=== PATIENT | female | born 1965 | race Caucasian/White ===

== ENCOUNTER → 2016-08-25 11:24 | Outpatient (CLI) | payer BC | END | disposition home or self-care (01) | LOC: D.MAMMO 11:24 | DX: Z12.31 Encounter for screening mammogram for malignant neoplasm of breast (principal) ==

== ENCOUNTER → 2017-11-10 08:00 | Outpatient (CLI) | payer BC | END | disposition home or self-care (01) | LOC: D.MAMMO 08:00 | DX: Z12.31 Encounter for screening mammogram for malignant neoplasm of breast (principal) ==

== ENCOUNTER → 2019-01-07 12:41 | Outpatient (CLI) | payer BC ==
--- NOTE | 2019-01-09 15:08 | EC ---
PATIENT:ISSAC JON DATE OF SERVICE: 01/07/19 SEX: F MEDICAL RECORD: [id number] DATE OF : 69 LOCATION:D[facility] AGE OF PATIENT: 53 ADMISSION DATE: 01/07/19 REFERRING PHYSICIAN: INTERPRETING PHYSICIAN: DWAYNE RICHARDSON MD ECHOCARDIOGRAM REPORT ECHO CHARGES 4 ECHO COMPLETE Date: 01/07/19 CLINICAL DIAGNOSIS: HTN/MURMUR/ATYPICAL CP ECHOCARDIOGRAPHIC MEASUREMENTS (adult normal given) AC root (d.<3.7cm) 2.6 cm LV Septum d (<1.2 cm> 0.9 cm Valve Excursion 1.8 cm LV Septum (systole) 1.5 cm Left Atria (s.<4.0cm> 3.8 cm LVPW d(<1.2cm) 1.0 cm RV (d.<2.3cm) 2.9 cm LVPW (sytole) 1.7 cm LV diastole(<5.6CM) 4.9 cm MV E-F(>70mm/sec) cm LV systole 2.4 cm LVOT Diameter 1.8 cm MV exc.(>10mm) cm Est.ejection fraction (50-75%) % DOPPLER: LVIT cm/sec A 67.0 cm/sec E 86.0 cm/sec LA cm/sec RVSP 24.0 mmHg LVOT 116 cm/sec AOP1/2T m/s Asc. Ao 144 cm/sec RVOT 51.0 cm/sec RA cm/sec PA 71.0 cm/sec AV Gradient Peak 8.3 mmHg AV Mean 4.8 mmHg AV Area 1.8 cm MV Gradient Peak 5.0 mmHg MV Mean 1.8 mmHg MV Area cm COMMENTS: OP - HC Sterilisation Technician: 1 DESTIN KENNY [facility] Dining Room Cashier: 3 Dr. Gray TAPE# PACS Pericardial Effusion N DATE OF SERVICE: Adequate 2D, color flow imaging, spectral Doppler, and M-Mode No LVH. LV internal dimensions are normal. Wall motion is normal. EF is greater than or equal to 55%. Aortic valve is tricuspid. No evidence of stenosis by Doppler interrogation.. Left atrium is normal at 3.8 cm. Mitral valve shows no prolapse. Trace MR. Right-sided chambers are grossly normal. Trace TR. ECHOCARDIOGRAM REPORT [id number] ISSAC JON TRANSINT:[id number] Voice Confirmation ID: [id number] DOCUMENT ID: [id number] DWAYNE RICHARDSON MD at 1508 CC: [id number] DICTATION DATE: 01/08/19 1331 DIE ATTACHING MACHINE TENDER: 01/08/19 1356 DEP CLI 01/07/19 [place] [id number] [place] [id number]
== END | disposition home or self-care (01) ==
LOC: D.HCCECHO 12:41
PROVIDERS: ATTEND Internal Medicine Interventional Cardiology
DX: R01.1 Cardiac murmur, unspecified (principal)

== ENCOUNTER 2019-06-04 08:00 | Outpatient (CLI) | payer BC | END 2019-06-04 23:59 | disposition home or self-care (01) | LOC: D.MAMMO 08:00 | PROVIDERS: ATTEND Clinical Nurse Specialist Adult Health | DX: Z12.31 Encounter for screening mammogram for malignant neoplasm of breast (principal) ==

== ENCOUNTER 2020-06-30 14:25 | Outpatient (CLI) | payer BC | END 2020-06-30 23:59 | disposition home or self-care (01) | LOC: D.MAMMO 14:25 | PROVIDERS: ATTEND Clinical Nurse Specialist Adult Health | DX: Z12.31 Encounter for screening mammogram for malignant neoplasm of breast (principal) ==